=== PATIENT | male | born 1970 | race Two or more races ===

== ENCOUNTER 2020-07-14 14:41 | Emergency (ER) | payer MEDICARE, MEDICAID ==
[~2020-07-14] VITALS: Ht 160 cm; Wt 80.0 kg
[2020-07-14 15:44] LABS: MEAN CORPUSCULAR HEMOGLOBIN 30.7 pg (27.5-34.5); MEAN CORPUSCULAR HGB CONC 32.1 g/dL (33.2-36.2); MEAN PLATELET VOLUME 9.3 fL (7.4-10.4); PLATELET COUNT 123 x10^3/uL (130-400); RED BLOOD COUNT 3.72 x10^6/uL (4.38-5.82); RED CELL DISTRIBUTION WIDTH 15.2 % (9.4-14.8)
--- NOTE | 2020-07-14 15:44 | NUR ---
RECEIVED V/O FOR RIGHT SHOULDER XRAY. ORDER PLACED. XRAY NOTIFIDE WHILE AT BEDSIDE FOR HAND IMAGING.
--- NOTE | 2020-07-14 15:46 | NUR ---
PT BP 205/111. PT STATES HE DOESN'T FEEL IT, DENIES BP MEDS AT THIS TIME.
[2020-07-14 15:55] LABS: ALANINE AMINOTRANSFERASE 27 U/L (12-78); ALBUMIN 2.9 g/dL (3.4-5.0); ANION GAP 7 mmol/L (5-15); CALCIUM 11.1 mg/dL (8.5-10.1); CHLORIDE 93 mmol/L (98-107)
[2020-07-14 15:56] LABS: MD YES
[2020-07-14 15:57] LABS: ALKALINE PHOSPHATASE 124 U/L (45-117); BILIRUBIN,TOTAL 1.6 mg/dL (0.2-1.0); TOTAL PROTEIN 7.4 g/dL (6.4-8.2)
[2020-07-14 16:41] LABS: BAND#(MANUAL) 0.14 x10^3/uL; BANDS%(MANUAL) 2 % (0-7); EOS#(MANUAL) 0.57 x10^3/uL (0.0-0.4); EOS% (MANUAL) 8 % (1-7); LYMPH#(MANUAL) 1.28 x10^3/uL (1-3.4); LYMPHS% (MANUAL) 18 % (22-44); MONOS#(MANUAL) 0.43 x10^3/uL (0.3-2.7); MONOS% (MANUAL) 6 % (2-9); SEG#(MANUAL) 4.69 x10^3/uL (1.8-6.8); SEGS% (MANUAL) 66 % (42-75)
[2020-07-14 16:42] LABS: ANISOCYTOSIS 1+
[2020-07-14 16:43] LABS: HYPOCHROMIA 1+
[2020-07-14 16:44] LABS: <PLATELET ESTIMATE> DECREASED; LARGE PLATELETS 1+
[2020-07-14 17:26] VITALS: BP 201/95
== END 2020-07-14 17:30 | disposition home or self-care (01) ==
LOC: ED 16:51
DX: S00.219A Abrasion of unspecified eyelid and periocular area, initial encounter (principal); S09.90XA Unspecified injury of head, initial encounter; R55 Syncope and collapse; R79.89 Other specified abnormal findings of blood chemistry; R94.31 Abnormal electrocardiogram [ECG] [EKG]; E11.65 Type 2 diabetes mellitus with hyperglycemia; W01.198A Fall on same level from slipping, tripping and stumbling with subsequent striking against other object, initial encounter; Y93.89 Activity, other specified; Y92.89 Other specified places as the place of occurrence of the external cause; Y99.8 Other external cause status
CPT/HCPCS: 36415; 70450; 80053; 85025; 93005; 99285